=== PATIENT | male | born 1990 | race African-American/Black ===

== ENCOUNTER 2017-06-03 13:38 | Emergency (ER) | payer OTHER ==
--- NOTE | 2017-06-03 14:22 | ED Physician Documentation ---
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 Starting 6 days ago on Friday he noticed numbness in both feet that was symmetric. Over the next couple of days descended and involved the legs and as of 2 days ago involved the left abdominal and chest wall. Yesterday he started to get numbness of the hands but not the arms or face. There is no associated pain, specifically no back pain, neck pain, or chest pain. There is no associated weakness. No fever. Of note he had a flu shot about 3 weeks ago. No recent illnesses.) Review of Systems Ten Systems: 10 systems reviewed and negative Constitutional: denies: Fever, Chills, Fatigue Throat: denies: Sore throat Cardiac: denies: Chest pain / pressure, Palpitations Respiratory: denies: Dyspnea, Cough PD PAST MEDICAL HISTORY - Past Medical History Past Medical History: No - Past Surgical History Past Surgical History: No HEENT: Other - Present Medications Home Medications: Ambulatory Orders Medication Instructions Recorded Confirmed No Known Home Medications [No 06/03/17 06/03/17 Known Home Medications] - Allergies Allergies/Adverse Reactions: Allergies Allergy/AdvReac Type Severity Reaction Status Date / Time No Known Drug Allergies Allergy Verified 06/03/17 13:52 - Social History Does the pt smoke?: No Smoking Status: Never smoker Does the pt drink ETOH?: Yes ETOH Use: Wine Does the pt have substance abuse?: No - Family History Family history: reports: Non contributory - Immunizations Immunizations are current?: Yes - POLST Patient has POLST: No PD ED PE NORMAL - Vitals Vital signs reviewed: Yes - General General: Alert and oriented X 3, No acute distress - HEENT HEENT: PERRL, EOMI, Ears normal, Pharynx benign - Neck Neck: Supple, no meningeal sign, No bony TTP - Cardiac Cardiac: RRR, No murmur - Respiratory Respiratory: No respiratory distress, Clear bilaterally - Abdomen Abdomen: Soft, Non tender - Back Back: No CVA TTP, No spinal TTP - Derm Derm: Normal color, Warm and dry - Extremities Extremities: No edema, No calf tenderness / cord - Neuro Neuro: Alert and oriented X 3, Normal speech, Other (He has mildly diminished sharp versus dull discrimination mostly on the left leg and left abdominal wall. He is areflexic to both patellae and has 1+ reflexes in the Achilles.) - Psych Psych: Normal mood, Normal affect Results - Vitals Vitals: Vital Signs - 24 hr 06/03/17 06/03/17 13:52 16:22 Temperature 36.1 C L Heart Rate 86 77 Respiratory 18 15 Rate Blood Pressure 155/99 H 149/81 H O2 Saturation 98 97 Oxygen O2 Source Room air - EKG (time done) 1654 Rate: Rate (enter#) (71) Rhythm: NSR [place]: Normal Intervals: Normal [place] Ischemia: ST elevation c/w repol Computer interpretation: Agree with computer - Labs Labs: Microbiology 06/03/17 14:45 CSF Culture - Preliminary Cerebral Spinal Fluid Laboratory Tests 06/03/17 06/03/17 06/03/17 14:30 14:30 14:45 WBC 4.9 RBC 5.44 Hgb 15.8 Hct 45.9 MCV 84.4 MCH 29.1 MCHC 34.4 RDW 13.4 Plt Count 172 MPV 9.4 Neut # 2.6 Lymph # 1.8 Mcleod # 0.4 Eos # 0.1 Baso # 0.0 Absolute Nucleated RBC 0.00 Nucleated RBC % 0.1 Sodium 136 Potassium 4.0 Chloride 99 L Carbon Dioxide 27 Anion Gap 10.0 BUN 18 Creatinine 1.5 H Estimated GFR (MDRD) 68 L Glucose 87 Calcium 9.6 Total Bilirubin 0.8 AST 60 H ALT 68 H Alkaline Phosphatase 99 Total Protein 8.3 H Albumin 4.8 Globulin 3.5 Albumin/Globulin Ratio 1.4 Lipase 19 L CSF Color COLORLESS CSF Clarity CLEAR Xanthrochromic ABSENT CSF WBC 0 CSF RBC 2 H CSF Cell Count Tube # CSF TUBE# 3 CSF Glucose 58 CSF Total Protein 39 Procedures - Lumbar Puncture Position: Sitting Location: L3-L4 Anesthesia: Local lidocaine CSF: Clear Other: Sterile prep and drape, Patient tolerated well PD MEDICAL DECISION MAKING - ED course ED course: 26-year-old gentleman with an ascending neuropathy, 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 LP was done and negative for oligocytoclonal dissociation. Case discussed with Dr. Gates, on-call neurology at [facility] at approximately 4:20 PM who admitted that the sensitivity of LP early in GBS is not very high and agrees with transfer down there for neurologic workup. He defers to family medicine for admission and will have them call me. Departure - Departure Disposition: 02 Transfer Acute Care Hosp Clinical Impression: Acute ascending myelitis Condition: Stable
[2017-06-03 14:38] LABS: BASOPHILS % (AUTO) 0.9 %; EOSINOPHILS # (AUTO) 0.1 10^3/uL (0.0-0.7); EOSINOPHILS % (AUTO) 2.6 %; HCT - HEMATOCRIT 45.9 % (42.0-52.0); HGB - HEMOGLOBIN 15.8 g/dL (14.0-18.0); LYMPHOCYTES # (AUTO) 1.8 10^3/uL (1.5-3.5); LYMPHOCYTES % (AUTO) 35.8 %; MEAN CORPUSCULAR HEMOGLOBIN 29.1 pg (27.0-31.0); MEAN CORPUSCULAR HGB CONC 34.4 g/dL (32.0-36.0); MEAN CORPUSCULAR VOLUME 84.4 fL (80.0-94.0); MEAN PLATELET VOLUME 9.4 fL (7.4-11.4); MONOCYTES # (AUTO) 0.4 10^3/uL (0.0-1.0); MONOCYTES % (AUTO) 8.4 %; NEUTROPHILS # (AUTO) 2.6 10^3/uL (1.5-6.6); NEUTROPHILS % (AUTO) 52.3 %; NUCLEATED RED BLOOD CELLS AUTO 0.1 /100WBC; RED BLOOD COUNT 5.44 10^6/uL (4.70-6.10); RED CELL DISTRIBUTION WIDTH 13.4 % (12.0-15.0); UNCORRECTED WHITE BLOOD COUNT 4.9 x10^3/uL; WHITE BLOOD COUNT 4.9 x10^3/uL (4.8-10.8)
[2017-06-03 14:48] LABS: ALBUMIN/GLOBULIN RATIO 1.4 (1.0-2.2); BILIRUBIN,TOTAL 0.8 mg/dL (0.2-1.0); CALCIUM 9.6 mg/dL (8.5-10.3); CREATININE 1.5 mg/dL (0.6-1.2); TOTAL PROTEIN 8.3 g/dL (6.7-8.2)
[2017-06-03 15:19] LABS: CSF - GLUCOSE 58 mg/dL (45-70)
[2017-06-03 15:20] LABS: CLARITY,CSF CLEAR (CLEAR); COLOR,CSF COLORLESS (COLORLESS); CSF XANTHOCHROMIA ABSENT (ABSENT); WHITE BLOOD CELL,CSF 0 /mm^3 (0-5)
[2017-06-03 19:17] VITALS: BP 140/119
== END 2017-06-03 19:20 | disposition short-term general hospital (02) ==
LOC: ED 13:38
DX: G04.89 Other myelitis (principal)
CPT/HCPCS: 36415; 62270; 80053; 82945; 83690; 84157; 85025; 87070; 87205; 89051; 93005; 99283; 99284; 99285

== ENCOUNTER 2017-06-07 11:37 | Emergency (ER) | payer OTHER ==
--- NOTE | 2017-06-07 12:21 | ED Physician Documentation ---
History of Present Illness - Stated complaint Stated Complaint: POST CHECK UP - Chief complaint Chief Complaint: General - History obtained from History obtained from: Patient - History of Present Illness Timing: Other (he was diagnosed with transverse myelitis and was at [facility]. Neurologist wants him to get Solumedrol 1 g daily for 5 days (with today to be third day). They had contacted me in ED yesterday to ensure we could dose him this way daily so that he did not need hospitalization. I had told them he can get meds dosed here this way since other arrangement would not be possible over this holiday weekend. He is here now to get IV dose of meds.) Review of Systems Constitutional: denies: Fever, Chills GI: denies: Abdominal Pain, Nausea, Vomiting Neurologic: reports: Numbness. denies: Focal weakness, Headache PD PAST MEDICAL HISTORY - Past Medical History Neuro: Other (trasnverse myelitis Dx this past week. ) - Past Surgical History Past Surgical History: No HEENT: Other - Present Medications Home Medications: Ambulatory Orders Medication Instructions Recorded Confirmed Ibuprofen [Motrin] 600 mg PO TID #30 tab 06/07/17 - Allergies Allergies/Adverse Reactions: Allergies Allergy/AdvReac Type Severity Reaction Status Date / Time No Known Drug Allergies Allergy Verified 06/07/17 12:31 - Social History Does the pt smoke?: No Smoking Status: Never smoker Does the pt drink ETOH?: Yes Does the pt have substance abuse?: No - Immunizations Immunizations are current?: Yes - POLST Patient has POLST: No PD ED PE NORMAL - Vitals Vital signs reviewed: Yes - General General: Alert and oriented X 3, No acute distress, Well developed/nourished - Neck Neck: Supple, no meningeal sign, No adenopathy - Cardiac Cardiac: RRR, No murmur - Respiratory Respiratory: Clear bilaterally - Derm Derm: Normal color, Warm and dry - Extremities Extremities: Normal ROM s pain, No edema Results - Vitals Vitals: Vital Signs - 24 hr 06/07/17 06/07/17 11:43 14:10 Temperature 36.8 C Heart Rate 94 94 Respiratory 17 20 Rate Blood Pressure 150/78 H 163/86 H O2 Saturation 97 97 Oxygen O2 Source Room air PD MEDICAL DECISION MAKING - ED course Complexity details: reviewed old records, considered differential, d/w patient Departure - Departure Disposition: 01 Home, Self Care Clinical Impression: Medication administered, Transverse myelitis Condition: Stable Record reviewed to determine appropriate education?: Yes Follow-Up: [facility] [Provider Group] Prescriptions: Ibuprofen [Motrin] 600 mg PO TID #30 tab Comments: Return tomorrow for repeat dose of IV medications as directed by the Neurologist. Ibuprofen or Tylenol as needed for pains. Discharge Date/Time: 06/07/17 14:20
[2017-06-07] MEDS ORDERED: methylPREDNISolone SUCCINATE 125 MG/2 ML VIAL IVP STA (12:40)
[2017-06-07] MEDS ORDERED: KETOROLAC 60 MG/2 ML VIAL IVP STA (12:40)
[2017-06-07] MEDS ORDERED: WATER FOR INJECTION,STERILE 20 ML ONE (12:57)
[2017-06-07] MEDS ORDERED: methylPREDNISolone SUCCINATE 1,000 MG in SODIUM CHLORIDE 0.9% 250 ML IV SCH (13:00)
[2017-06-07 14:11] VITALS: BP 163/86
== END 2017-06-07 14:20 | disposition home or self-care (01) ==
LOC: ED 11:37
DX: G37.3 Acute transverse myelitis in demyelinating disease of central nervous system (principal); Z79.1 Long term (current) use of non-steroidal anti-inflammatories (NSAID)
CPT/HCPCS: 96374; 96375; 99283

== ENCOUNTER 2017-06-08 12:17 | Emergency (ER) | payer OTHER ==
[2017-06-08] MEDS ORDERED: methylPREDNISolone SUCCINATE 1,000 MG in SODIUM CHLORIDE 0.9% 250 ML IV STA (13:49)
[2017-06-08] MEDS ORDERED: FUROSEMIDE 20 MG/2 ML VIAL IVP STA (14:10)
--- NOTE | 2017-06-08 14:43 | ED Physician Documentation ---
History of Present Illness - Stated complaint Stated Complaint: FOLLOW UP - Chief complaint Chief Complaint: General - History obtained from History obtained from: Patient - History of Present Illness Timing: Other (here for repeat dose of IV solumedrol per Neurology at [facility]. Will be returning tomorrow for last dose as well (total 5 days). He is having fluid retention and asks about that. Also some trouble sleeping at night. Told he could take Benadryl at night. Will give dose diuretic today and can repeat that tomorrow as well.) Review of Systems Constitutional: denies: Fever, Chills Musculoskeletal: reports: Other (general fluid retention and feeling bloated.) PD PAST MEDICAL HISTORY - Past Medical History Past Medical History: No Neuro: Other - Past Surgical History Past Surgical History: No HEENT: Other - Present Medications Home Medications: Ambulatory Orders Medication Instructions Recorded Confirmed No Known Home Medications [No 06/08/17 06/08/17 Known Home Medications] - Allergies Allergies/Adverse Reactions: Allergies Allergy/AdvReac Type Severity Reaction Status Date / Time No Known Drug Allergies Allergy Verified 06/08/17 12:24 - Social History Does the pt smoke?: No Smoking Status: Never smoker Does the pt drink ETOH?: Yes Does the pt have substance abuse?: No - Immunizations Immunizations are current?: Yes - POLST Patient has POLST: No PD ED PE NORMAL - Vitals Vital signs reviewed: Yes - General General: Alert and oriented X 3, No acute distress, Well developed/nourished - Neck Neck: Supple, no meningeal sign, No adenopathy - Cardiac Cardiac: RRR, No murmur - Respiratory Respiratory: Clear bilaterally - Abdomen Abdomen: Soft, Non tender - Derm Derm: Other (mild general edema noted.) Results - Vitals Vitals: Oxygen O2 Source Room air PD MEDICAL DECISION MAKING - ED course Complexity details: reviewed old records, considered differential, d/w patient Departure - Departure Disposition: 01 Home, Self Care Clinical Impression: Medication administered, Transverse myelitis Condition: Stable Record reviewed to determine appropriate education?: Yes Follow-Up: [facility] Al[facility] [Provider Group] Comments: You can use Benadryl 25-50 mg at night if needed for sleep. We gave a dose of a diuretic here to help with some of the fluid retention from the steroids. We can give another dose tomorrow with your last dose of the Solu-Medrol. [place] Recheck if problems. Discharge Date/Time: 06/08/17 15:26
[2017-06-08 15:26] VITALS: BP 160/98
== END 2017-06-08 15:26 | disposition home or self-care (01) ==
LOC: ED 12:17
DX: G37.3 Acute transverse myelitis in demyelinating disease of central nervous system (principal); R60.1 Generalized edema
CPT/HCPCS: 96365; 96375; 99283

== ENCOUNTER 2017-06-09 12:50 | Emergency (ER) | payer OTHER ==
[2017-06-09] MEDS ORDERED: methylPREDNISolone SUCCINATE 1,000 MG in SODIUM CHLORIDE 0.9% 250 ML IV STA (12:59)
--- NOTE | 2017-06-09 13:09 | ED Physician Documentation ---
History of Present Illness - Stated complaint Stated Complaint: NUMBNESS WHOLE BODY - History obtained from History obtained from: Patient - History of Present Illness Pain level max: 0 Pain level now: 0 - Additonal information Additional information: Patient is a 26-year-old male who was recently diagnosed with transverse myelitis. He was transferred to [facility] again where he was placed on IV steroids. He has been sent here today for his 1 g IV dose of Solu-Medrol. He has an appointment with neurology on . This is his fifth day of steroids. Review of Systems Constitutional: denies: Fever, Chills Respiratory: denies: Cough GI: denies: Nausea, Vomiting, Diarrhea Skin: denies: Rash Neurologic: reports: Numbness (Has diffuse body numbness) PD PAST MEDICAL HISTORY - Past Medical History Past Medical History: Yes Neuro: Other - Past Surgical History Past Surgical History: No HEENT: Other - Present Medications Home Medications: Ambulatory Orders Medication Instructions Recorded Confirmed No Known Home Medications [No 06/08/17 06/08/17 Known Home Medications] - Allergies Allergies/Adverse Reactions: Allergies Allergy/AdvReac Type Severity Reaction Status Date / Time No Known Drug Allergies Allergy Verified 06/08/17 12:24 - Social History Does the pt smoke?: No Smoking Status: Never smoker Does the pt drink ETOH?: Yes Does the pt have substance abuse?: No - Immunizations Immunizations are current?: Yes - POLST Patient has POLST: No PD ED PE NORMAL - Vitals Vital signs reviewed: Yes - General General: Alert and oriented X 3, No acute distress - HEENT HEENT: Moist mucous membranes - Derm Derm: Warm and dry - Neuro Neuro: Alert and oriented X 3 - Psych Psych: Normal mood, Normal affect Results - Vitals Vitals: Vital Signs - 24 hr 06/09/17 13:05 Temperature 36.5 C Heart Rate 71 Respiratory 16 Rate Blood Pressure 171/69 H O2 Saturation 99 Oxygen O2 Source Room air PD MEDICAL DECISION MAKING - ED course Complexity details: reviewed old records, considered differential, d/w patient ED course: Patient given his dose of Solu-Medrol. We will send him him to follow-up with neurology on as scheduled. Patient counseled regarding signs and symptoms for which I believe and urgent re-evaluation would be necessary. Patient with good understanding of and agreement to plan and is comfortable going home at this time This document was made in part using voice recognition software. While efforts are made to proofread this document, sound alike and grammatical errors may occur. Departure - Departure Disposition: 01 Home, Self Care Clinical Impression: Transverse myelitis Condition: Good Follow-Up: your,doctor as scheduled this week. [Other] Comments: Return if you worsen.
[2017-06-09 14:16] VITALS: BP 168/68
== END 2017-06-09 14:26 | disposition home or self-care (01) ==
LOC: ED 12:50
DX: G37.3 Acute transverse myelitis in demyelinating disease of central nervous system (principal); R20.0 Anesthesia of skin
CPT/HCPCS: 96365; 99283